=== PATIENT | male | born 1995 | race Caucasian/White ===

== ENCOUNTER 2017-02-21 08:20 | Emergency (ER) | payer OTHER ==
[2017-02-21] MEDS ORDERED: Proparacaine 0.5% Ophth Soln 15 ML Bottle EYERT PRN (08:24)
[2017-02-21] MEDS ORDERED: Fluorescein 1 MG Ophth Strip EYERT ONE (08:25)
[2017-02-21] MEDS ORDERED: Fluorescein 1 MG Ophth Strip ONE (08:37)
[2017-02-21 09:06] VITALS: BP 142/80
--- NOTE | 2017-02-26 07:54 | ER ---
Date of Service: 02/21/2017 SUBJECTIVE: The patient presents to emergency room with complaints of pain in his right eye. The patient states that he was grinding some metal the day before presenting to the emergency room and got a foreign body in his eye. The patient states that he was wearing safety glasses, but the piece of metal did get around the edge of the safety glasses. He states that he can feel as though there is something in his eye. He denies any acute vision loss or change. PAST MEDICAL HISTORY: Denies. MEDICATIONS: None. ALLERGIES: NKDA. REVIEW OF SYSTEMS: Denies any acute vision loss or change. He states that his discomfort is isolated to his right eye. PHYSICAL EXAMINATION: General: This is a 21-year-old male patient who is in no acute distress. Vital Signs: Blood pressure is 142/80, heart rate is 73, temperature is 35.2, respiratory rate is 16, O2 saturations 100%. Skin: Warm, pink, and dry. HEENT: The patient's visual acuity in both eyes is 20/40. No obvious globe injury noted. Extraocular movements are intact. There is no funduscopic papilledema. No obvious retained foreign body noticed on the surface of the eye to the underside of the eyelid. With fluorescein examination, the patient was noted to have a small foreign body in the mid pupil area. Remainder of his physical examination is within normal limits. EMERGENCY ROOM COURSE: The patient's eye was anesthetized with proparacaine. Again fluorescein was placed in the patient's right eye. Once the foreign body was detected, it was able to be removed with a cotton-tipped applicator. Again no obvious corneal abrasion. I was unable to see specifically if there was a retained rust ring. No other obvious trauma noted. Remainder of his physical examination is within normal limits. ASSESSMENT: Foreign body to right eye. PLAN: The patient will be discharged. I was again unable to completely assess for rust ring or other retained material on the surface of the eye as the foreign body was in the area of the pupil, which made it impossible to see if there was any other dark colored material. I subsequently contacted [facility] here in [place] and set the patient up for a slit lamp examination at their clinic in [place]. They also stated that they would prescribe him antibiotics and arrange followup. All questions were answered. MWK: 02/24/2017 17:01:42 MODL: 02/24/2017 22:53:26 /[id number]
== END 2017-02-21 09:20 | disposition home or self-care (01) ==
LOC: VM.ED 08:20
DX: T15.01XA Foreign body in cornea, right eye, initial encounter (principal)
CPT/HCPCS: 65205; 99283